=== PATIENT | female | born 1970 | race Caucasian/White ===

== ENCOUNTER → 2020-10-20 | Outpatient (CLI) | payer BC, MEDICARE ==
--- NOTE | 2020-10-24 00:44 | ECWPNPC ---
PATIENT NAME: BLANCA LEON : 1970 GENDER: FEMALE VISIT DATE: 10/20/2020 DISCHARGE DATE: 10/20/20 1320 VISIT LOCKED DATE TIME: PHYSICIAN: HENRIETTA ORTIZ PHYSICIAN PAGER NO: ACTIVE RESOURCE: HENRIETTA ORTIZ REASON FOR APPOINTMENT 1. LOW BACK HISTORY OF PRESENT ILLNESS DEPRESSION SCREENING: PHQ-2 (2015 EDITION) LITTLE INTEREST OR PLEASURE IN DOING THINGS?NOT AT ALL FEELING DOWN, DEPRESSED, OR HOPELESS?NOT AT ALL TOTAL SCORE0 GENERAL: HPI 50-YEAR-OLD FEMALE IN FOR INITIAL PAIN CONSULT REGARDING LOW BACK PAIN. PATIENT ADMITS THE PAIN HAS BEEN PRESENT FOR 4-5 YEARS AND DENIES HISTORY OF TRAUMA. PATIENT HAS HAD FACET BLOCKS IN THE PAST WITH GOOD RESULTS EVIDENCED BY DECREASED PAIN AND INCREASED FUNCTIONALITY TIMES ONE YEAR. SHE RATES HER PAIN CURRENTLY AT A 1 OUT OF 10 AND DESCRIBES IT ACHING, INTERMITTENT, TENDER, AND SORE.. - -. FALL RISK SCREENING: SCREENING : NO FALLS REPORTED IN THE LAST YEAR. PAIN SCREENING: PATIENT HAS A COMPLAINT OF ACUTE OR CHRONIC PAIN :YES LOCATION OF PAIN:LOW BACK INTENSITY OF PAIN (SCALE OF 1 TO 10):1 WHAT DOES YOUR PAIN FEEL LIKE:ACHING, INTERMITTENT, TENDER, SORE DURATION:INTERMITTENT PAIN IS INCREASED BY:ACTIVITIES, PROLONGED STANDING PAIN IS DECREASED BY:USE OF PAIN MEDICATIONS, OTHERS HEATING PAD NURSING NOTE: - -. PAIN CENTER INTAKE QUESTIONS: DO YOU HAVE A HISTORY OF MRSA? :NO DO YOU TAKE A BLOOD THINNERS? :NO DO YOU HAVE ANY BLEEDING DISORDERS? :NO ANY NEW NUMBNESS OR WEAKNESS IN YOUR LEGS OR ARMS? :NO ANY PACEMAKER,DEFIBRILLATOR, OR DORSAL COLUMN STIMULATOR? :NO DO YOU HAVE ANY RASHES OR OPEN SORES? :NO ARE YOU ALLERGIC TO IV DYE? :NO ARE YOU DIABETIC? :NO ANY NEW PROBLEMS WITH YOUR MEDICATIONS? :NO HAVE YOU RECEIVED A VACCINE IN THE PAST 30 DAYS? :NO DO YOU PLAN TO RECEIVE A VACCINE IN THE NEXT 21 DAYS? :NO DO YOU NEED ANY PRESCRIPTION? :NO DO YOU TAKE ANY IMMUNOSUPPRESSIVE MEDICATIONS? :NO IS THERE A CHANCE YOU COULD BE ? :NO ARE YOU BREAST FEEDING? :NO CURRENT MEDICATIONS TAKING LISINOPRIL 20 MG TABLET 1 TABLET ORALLY ONCE A DAY TAKING VALTREX 500 MG TABLET 1 TABLET ORALLY ONCE A DAY TAKING IBUPROFEN 600 MG TABLET 1 TABLET WITH FOOD OR MILK NEEDED ORALLY THREE TIMES A DAY TAKING XYZAL ALLERGY 24HR 5 MG TABLET 1 TABLET IN THE EVENING ORALLY ONCE A DAY TAKING CALCIUM + D 500-1000-40 MG-UNT-MCG TABLET CHEWABLE DIRECTED ORALLY TAKING BOTOX 200 UNIT SOLUTION RECONSTITUTED DIRECTED INJECTION TAKING OMEPRAZOLE 10 MG CAPSULE DELAYED RELEASE 1 CAPSULE 30 MINUTES BEFORE MORNING MEAL ORALLY ONCE A DAY TAKING VALTREX 1 GM TABLET 1 TABLET ORALLY ONCE A DAY TAKING MULTIVITAMIN - TABLET 1 TABLET ORALLY ONCE A DAY TAKING BIOTIN 10 MG TABLET 1 TABLET ORALLY ONCE A DAY TAKING LEXAPRO 20 MG TABLET 1 TABLET ORALLY ONCE A DAY MEDICATION LIST REVIEWED AND RECONCILED WITH THE PATIENT PAST MEDICAL HISTORY HIGH BLOOD PRESSURE MIGRAINES ARTHRITIS OF THE LEFT THUMB HEMORRHOLDS GALLBLADDER DISEASE NUMBNESS IN LEFT HAND VAGINAL INFECTIONS HTN ALLERGIES BACTRIM: HIVES - SIDE EFFECTS SURGICAL HISTORY TONSILLECTOMY 02/19/2018 4X /1991/1990 L WRIST 3X, L FEMUR 1984 HYSTERCTOMY 2012 HEMORRHOLDECTOMY 09/22/2014 NASAL SEPTOPLASTY 02/15/2015 LEFT CARPAL TUNNEL 03/13/2015 RIGHT CARPAL TUNNEL 04/10/2015 FAMILY HISTORY FATHER: ALIVE 73 YRS, CORONARY ARTERY DISEASE, HYPERTENSION MOTHER: ALIVE 71 YRS, CORONARY ARTERY DISEASE, HYPERTENSION, BREAST CANCER, TYPE 2 DIABETES, DIAGNOSED WITH DIABETES, HYPERTENSION SIBLINGS: ALIVE SON(S): ALIVE DAUGHTER(S): ALIVE 1 BROTHER(S) - HEALTHY. 2 SON(S) , 2 DAUGHTER(S) - HEALTHY. SOCIAL HISTORY GENERAL: TOBACCO USE ARE YOU A:NONSMOKER LATEX QUESTIONNAIRE LATEX ALLERGY : HAVE YOU EVER DEVELOPED ANY TYPE OF REACTION AFTER HANDLING LATEX PRODUCTS SUCH RUBBER GLOVES, CONDOMS, DIAPHRAGMS, BALLOONS, SOCKS, OR UNDERWEAR?NO LATEX ALLERGY : HAVE YOU EVER DEVELOPED ANY TYPE OF REACTION DURING OR AFTER DENTAL APPOINTMENT, VAGINAL/RECTAL EXAMINATION, SURGICAL PROCEDURE, OR ANY OTHER EXPOSURE?NO LATEX RISK : HAVE YOU EVER HAD ANY DIFFICULTY BREATHING OR HIVES AFTER EATING OR HANDLING ANY FRUITS, OR VEGETABLES; SUCH KIWI, BANANAS, STONE FRUITS, OR CHESTNUTSNO LATEX RISK : DO YOU HAVE A PREVIOUS PERSONAL HISTORY OF MORE THAN NINE SURGERIES, SPINA BIFIDA, OR REPEATED CATHERIZATIONS? NO LATEX RISK : ARE YOU FREQUENTLY EXPOSED TO LATEX PRODUCTS IN YOUR OCCUPATION?NO DATE ASKED : 10/20/2020 ALCOHOL USE: NO. RECREATIONAL DRUG USE DRUG USE?NO LANGUAGE LANGUAGES SPOKEN:TAJIK LEARNING BARRIERS / SPECIAL NEEDS VISION IMPAIRED?YES : READING LEARNING PREFERENCES?NO HOSPITALIZATION/MAJOR DIAGNOSTIC PROCEDURE CHILD 4X REVIEW OF SYSTEMS CONSTITUTIONAL: ANY RECENT FEVER NO . CHILLS NO . WEIGHT CHANGE OF UNKNOWN REASONS NO . MUSCULOSKELETAL: ANY UNUSUAL JOINT PAIN OR SWELLING NOT MENTIONED NO . SYSTEMIC LUPUS NO . ANY NEUROMUSCULAR DISORDER NOT MENTIONED NO . LYME DISEASE NO . GASTROENTEROLOGY: ANY NEW CHANGE IN BOWEL CONTROL? NO . HISTORY OF LIVER DISORDER NOT MENTIONED NO . HISTORY OF UNUSUAL ABDOMINAL PAIN OR CRAMPING NOT MENTIONED NO . NO CONSTIPATION. GENITOURINARY: ANY NEW CHANGE IN BLADDER CONTROL? NO . ANY RENAL/KIDNEY CONDITON NOT MENTIONED NO . NEUROLOGY: HISTORY OF TBI NOT MENTIONED NO . OTHER NEW NUMBNESS OR PAIN PATTERNS NOT MENTIONED NO . NEW ONSET DIZZINESS OR NEUROLOGICAL CHANGES NOT MENTIONED NO . HISTORY OF SEVERE HEADACHES NOT MENTIONED NO . HISTORY OF STROKE OR NEUROLOGICAL DISORDER NOT MENTIONED NO . CARDIOLOGY: HEART SURGERY NO . CONGESTIVE HEART FAILURE/FLUID OVERLOAD NOT MENTIONED NO . HISTORY OF CHEST PAIN,IRREGULAR HEART BEAT NOT MENTIONED NO . RESPIRATORY: SHORTNESS OF BREATH ON EXERTION, WHEEZES, UNUSUAL COUGH NOT MENTIONED NO . ENDOCRINOLOGY: ADRENAL GLAND OR THYROID DISORDERS NOT MENTIONED NO . UNUSUAL URINATION, DIZZINESS OR LETHARGY NOT MENTIONED NO . VITAL SIGNS WT 158 LBS, HT 5'1, BMI 30.85 INDEX, BP 124/83 MM HG, HR 63 /MIN, RR 18 /MIN, TEMP 97.3 F, OXYGEN SAT % 99%, SAFE IN ENV? (Y/N) YEST.LUIS ANGEL CARRILLO. EXAMINATION GENERAL EXAMINATION: GENERALNO ACUTE DISTRESS, WELL NOURISHED AND HYDRATED. PSYCHAPPROPRIATE MOOD AND AFFECT . LUNGS:CLEAR TO AUSCULTATION BILATERALLY, NO WHEEZES, RHONCHI, RALES. HEART:NO MURMURS, REGULAR RATE AND RHYTHM. BACK:POINT TENDER L4-L5, SURROUNDING SKIN SHOWS NO ERYTHEMA, ECCHYMOSIS, INCREASED WARMTH, AND/OR SKIN ERUPTIONS NOTED. PATIENT DOES ENDORSE INCREASED PAIN WITH FACET LOADING.. MUSCULOSKELETAL:EQUAL STRENGTH OF THE LOWER EXTREMITIES BILATERALLY. ASSESSMENTS LOW BACK PAIN - M54.5 (PRIMARY) TREATMENT LOW BACK PAIN [facility] MRI SPINE, L.S. WITHOUT [id number] NOTES: 50-YEAR-OLD FEMALE IN FOR INITIAL PAIN CONSULT REGARDING LOW BACK PAIN. GIVEN PRESENTING SYMPTOMS RECOMMEND OBTAINING AN UPDATED MRI FOR FURTHER EVALUATION AND FOLLOW-UP THEREAFTER. PATIENT HAS EXPRESSED UNDERSTANDING OF AND WAS IN AGREEMENT WITH TREATMENT PLAN. GIVEN TIME TO ASK QUESTIONS AND EXPRESS CONCERNS. PROCEDURE CODES FA211 ESTABILISHED PATIENT [facility] FACILITY CHARGE DISPOSITION & COMMUNICATION FOLLOW UP POST IMAGING (REASON: MRI WITHOUT CONTRAST ) ELECTRONICALLY SIGNED BY CELINA RANKIN ON 10/23/2020 AT 12:46 PM EDT DISCLAIMER : THIS IS A VISIT SUMMARY EXTRACTED FROM THE [employer] CHART. IT IS NOT A COPY OF THE [employer] PROGRESS NOTE. ABBY
== END ==
LOC: M PAIN 13:00
PROVIDERS: ATTEND Family Medicine
DX: M54.5 Low back pain (principal); G43.909 Migraine, unspecified, not intractable, without status migrainosus; Z88.1 Allergy status to other antibiotic agents; Z79.899 Other long term (current) drug therapy

== ENCOUNTER → 2020-11-08 | Outpatient (CLI) | payer BC, MEDICARE ==
--- NOTE | 2020-11-10 00:38 | ECWPNPC ---
PATIENT NAME: BLANCA LEON : 1970 GENDER: FEMALE VISIT DATE: 11/08/2020 DISCHARGE DATE: 11/08/20 1509 VISIT LOCKED DATE TIME: PHYSICIAN: HENRIETTA ORTIZ PHYSICIAN PAGER NO: ACTIVE RESOURCE: HENRIETTA ORTIZ REASON FOR APPOINTMENT 1. REVIEW MRI HISTORY OF PRESENT ILLNESS GENERAL: -50-YEAR-OLD FEMALE IN FOR CHRONIC PAIN FOLLOW-UP. PATIENT HAD MRI PERFORMED RECENTLY WHICH WILL BE REVIEWED WITH PATIENT TODAY. SHE RATES HER PAIN CURRENTLY AT A 0 OUT OF 10 BUT DOES ADMIT THAT IT GETS HIGH A 7 OUT OF 10. FALL RISK SCREENING: SCREENING : NO FALLS REPORTED IN THE LAST YEAR. PAIN SCREENING: PATIENT HAS A COMPLAINT OF ACUTE OR CHRONIC PAIN :YES LOCATION OF PAIN:LOW BACK O PAIN TODAY BUT GETS HIGH 7. NURSING NOTE: -. PAIN CENTER INTAKE QUESTIONS: DO YOU HAVE A HISTORY OF MRSA? :NO DO YOU TAKE A BLOOD THINNERS? :NO DO YOU HAVE ANY BLEEDING DISORDERS? :NO ANY NEW NUMBNESS OR WEAKNESS IN YOUR LEGS OR ARMS? :NO ANY PACEMAKER,DEFIBRILLATOR, OR DORSAL COLUMN STIMULATOR? :NO DO YOU HAVE ANY RASHES OR OPEN SORES? :NO ARE YOU ALLERGIC TO IV DYE? :NO ARE YOU DIABETIC? :NO ANY NEW PROBLEMS WITH YOUR MEDICATIONS? :NO HAVE YOU RECEIVED A VACCINE IN THE PAST 30 DAYS? :NO DO YOU PLAN TO RECEIVE A VACCINE IN THE NEXT 21 DAYS? :NO DO YOU NEED ANY PRESCRIPTION? :NO DO YOU TAKE ANY IMMUNOSUPPRESSIVE MEDICATIONS? :NO IS THERE A CHANCE YOU COULD BE ? :NO ARE YOU BREAST FEEDING? :NO CURRENT MEDICATIONS TAKING LISINOPRIL 20 MG TABLET 1 TABLET ORALLY ONCE A DAY TAKING VALTREX 500 MG TABLET 1 TABLET ORALLY ONCE A DAY TAKING IBUPROFEN 600 MG TABLET 1 TABLET WITH FOOD OR MILK NEEDED ORALLY THREE TIMES A DAY, NOTES: NEEDED TAKING XYZAL ALLERGY 24HR 5 MG TABLET 1 TABLET IN THE EVENING ORALLY ONCE A DAY, NOTES: NEEDED TAKING BOTOX 200 UNIT SOLUTION RECONSTITUTED DIRECTED INJECTION TAKING OMEPRAZOLE 40 MG CAPSULE DELAYED RELEASE 1 CAPSULE 30 MINUTES BEFORE MORNING MEAL ORALLY ONCE A DAY TAKING VALTREX 500 MG TABLET 1 TABLET ORALLY ONCE A DAY TAKING MULTIVITAMIN - TABLET 1 TABLET ORALLY ONCE A DAY TAKING BIOTIN 35211 MCG TABLET 1 TABLET ORALLY ONCE A DAY TAKING LEXAPRO 20 MG TABLET 1 TABLET ORALLY ONCE A DAY TAKING CALCIUM + D 500-1000-40 MG-UNT-MCG TABLET CHEWABLE 1 TABLET ORALLY ONCE DAILY TAKING SAXENDA 18 MG/3ML SOLUTION PEN-INJECTOR 1.2 FOR 5 DAYS, 1.8 FOR 4 DAYS, THEN TO 3ML SUBCUTANEOUS NOT-TAKING CALCIUM + D 500-1000-40 MG-UNT-MCG TABLET CHEWABLE DIRECTED ORALLY , NOTES: NOT TAKING MEDICATION LIST REVIEWED AND RECONCILED WITH THE PATIENT PAST MEDICAL HISTORY HIGH BLOOD PRESSURE MIGRAINES ARTHRITIS OF THE LEFT THUMB HEMORRHOLDS GALLBLADDER DISEASE NUMBNESS IN LEFT HAND VAGINAL INFECTIONS HTN OVARIAN MASS ALLERGIES BACTRIM: HIVES - SIDE EFFECTS SOCIAL HISTORY GENERAL: TOBACCO USE ARE YOU A:NONSMOKER LATEX QUESTIONNAIRE LATEX ALLERGY : HAVE YOU EVER DEVELOPED ANY TYPE OF REACTION AFTER HANDLING LATEX PRODUCTS SUCH RUBBER GLOVES, CONDOMS, DIAPHRAGMS, BALLOONS, SOCKS, OR UNDERWEAR?NO LATEX ALLERGY : HAVE YOU EVER DEVELOPED ANY TYPE OF REACTION DURING OR AFTER DENTAL APPOINTMENT, VAGINAL/RECTAL EXAMINATION, SURGICAL PROCEDURE, OR ANY OTHER EXPOSURE?NO LATEX RISK : HAVE YOU EVER HAD ANY DIFFICULTY BREATHING OR HIVES AFTER EATING OR HANDLING ANY FRUITS, OR VEGETABLES; SUCH KIWI, BANANAS, STONE FRUITS, OR CHESTNUTSNO LATEX RISK : DO YOU HAVE A PREVIOUS PERSONAL HISTORY OF MORE THAN NINE SURGERIES, SPINA BIFIDA, OR REPEATED CATHERIZATIONS? NO LATEX RISK : ARE YOU FREQUENTLY EXPOSED TO LATEX PRODUCTS IN YOUR OCCUPATION?NO DATE ASKED : 11/08/2020 ALCOHOL USE: NO. RECREATIONAL DRUG USE DRUG USE?NO LANGUAGE LANGUAGES SPOKEN:FAR[place]ESE EDUCATION LEVEL OF EDUCATION:NOT FINISHED COLLEGE LEARNING BARRIERS / SPECIAL NEEDS CHANGE FROM LAST VISIT?NO BARRIERS TO LEARNING?NO HEARING IMPAIRED?NO VISION IMPAIRED?YES : READING COGNITIVELY IMPAIRED?NO READINESS TO LEARN?YES LEARNING PREFERENCES?NO LEARNING CAPABILITIES PRESENT?YES EMOTIONAL BARRIERS?NO SPECIAL DEVICES?NO FIXING MACHINE OPERATOR NEEDED?NO REVIEW OF SYSTEMS CONSTITUTIONAL: ANY RECENT FEVER NO . CHILLS NO . WEIGHT CHANGE OF UNKNOWN REASONS NO . GASTROENTEROLOGY: NEW UNEXPLAINABLE CHANGES IN BOWEL CONTROL NO . CONSTIPATION NO . GENITOURINARY: ANY NEW CHANGE IN BLADDER CONTROL? NO . NEUROLOGY: NEW ONSET DIZZINESS OR NEUROLOGICAL CHANGES NOT MENTIONED NO . NEW NUMBNESS OR PAIN PATTERNS NOT MENTIONED AND PERTINENT TO TODAY'S VISIT NO . CARDIOLOGY: NEW CHEST PRESSURE NO . PATIENT DENIES NO . RESPIRATORY: UNEXPLAINABLE COUGH NO . NEW SHORTNESS OF BREATH NO . VITAL SIGNS WT 158 LBS, HT 5'1, BMI 30.85 INDEX, BP 126/88 MM HG, HR 69 /MIN, RR 18 /MIN, TEMP 99.1 F, OXYGEN SAT % 98%, SAFE IN ENV? (Y/N) YES, REVIEWED BY: PATY TORRES MA. EXAMINATION GENERAL EXAMINATION: GENERALNO ACUTE DISTRESS, WELL NOURISHED AND HYDRATED. PSYCHAPPROPRIATE MOOD AND AFFECT . LUNGS:CLEAR TO AUSCULTATION BILATERALLY, NO WHEEZES, RHONCHI, RALES. HEART:NO MURMURS, REGULAR RATE AND RHYTHM. ASSESSMENTS LOW BACK PAIN - M54.5 (PRIMARY) TREATMENT LOW BACK PAIN NOTES: 50-YEAR-OLD FEMALE IN FOR CHRONIC PAIN FOLLOW-UP. 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 PATIENT HAS BEEN SEEN BY GYNECOLOGY FOR THIS. PATIENT FURTHER STATES THAT THERE IS A POTENTIAL FOR SURGERY REGARDING REMOVAL OF THE CYST. GIVEN PRESENTING SYMPTOMS RECOMMEND FOLLOW-UP IN 2 MONTHS TO DETERMINE IF AFTER REMOVAL OF THE CYST THE PATIENT STILL HAS BACK PAIN. PATIENT HAS EXPRESSED UNDERSTANDING OF AND WAS IN AGREEMENT WITH TREATMENT PLAN. GIVEN TIME TO ASK QUESTIONS AND EXPRESS CONCERNS. PROCEDURE CODES FA211 ESTABILISHED PATIENT [facility] CHARGE DISPOSITION & COMMUNICATION FOLLOW UP 3 MONTHS (REASON: LOW BACK PAIN) ELECTRONICALLY SIGNED BY CELINA RANKIN ON 11/09/2020 AT 12:59 PM EDT DISCLAIMER : THIS IS A VISIT SUMMARY EXTRACTED FROM THE [employer] CHART. IT IS NOT A COPY OF THE [employer] PROGRESS NOTE. MTDScarlett
== END ==
LOC: M PAIN 14:30
PROVIDERS: ATTEND Family Medicine
DX: M54.5 Low back pain (principal); G89.29 Other chronic pain; G43.909 Migraine, unspecified, not intractable, without status migrainosus; Z88.1 Allergy status to other antibiotic agents; Z79.899 Other long term (current) drug therapy

== ENCOUNTER → 2021-12-18 | Outpatient (CLI) | payer BC, MEDICARE | LOC: M PAIN 09:45 | PROVIDERS: ATTEND Nurse Practitioner Family | DX: M79.10 Myalgia, unspecified site (principal); G89.29 Other chronic pain; G43.909 Migraine, unspecified, not intractable, without status migrainosus; Z88.1 Allergy status to other antibiotic agents; E66.01 Morbid (severe) obesity due to excess calories; Z68.41 Body mass index [BMI] 40.0-44.9, adult; Z79.899 Other long term (current) drug therapy ==

== ENCOUNTER → 2022-06-14 | Outpatient (CLI) | payer BC, MEDICARE ==
[~2022-06-14] MED LIST: BUPIVACAINE HCL 0.25% 10ML VIAL As Ordered ONE; BUPIVACAINE HCL 0.25% 30ML VIAL As Ordered ONE; TRIAMCINOLONE ACETONIDE SUSP 40MG/ML 1ML VIAL As Ordered ONE; diazePAM 5MG TABLET As Ordered ONE
== END ==
LOC: M PAIN 08:15
PROVIDERS: ATTEND Anesthesiology
DX: M79.10 Myalgia, unspecified site (principal); G89.29 Other chronic pain; I10 Essential (primary) hypertension; G43.909 Migraine, unspecified, not intractable, without status migrainosus; Z88.1 Allergy status to other antibiotic agents; E66.01 Morbid (severe) obesity due to excess calories; Z68.41 Body mass index [BMI] 40.0-44.9, adult; Z79.899 Other long term (current) drug therapy
CPT/HCPCS: 20552; J3301

== ENCOUNTER → 2022-06-26 | Outpatient (CLI) | payer BC, MEDICARE | LOC: M PAIN 15:00 | PROVIDERS: ATTEND Anesthesiology | DX: M54.50 Low back pain, unspecified (principal); G89.29 Other chronic pain; I10 Essential (primary) hypertension; G43.909 Migraine, unspecified, not intractable, without status migrainosus; Z88.1 Allergy status to other antibiotic agents; Z79.899 Other long term (current) drug therapy ==

== ENCOUNTER → 2023-02-07 | Outpatient (CLI) | payer BC, MEDICARE | LOC: M PAIN 09:00 | PROVIDERS: ATTEND Anesthesiology | DX: M79.10 Myalgia, unspecified site (principal); G89.29 Other chronic pain; I10 Essential (primary) hypertension; G43.909 Migraine, unspecified, not intractable, without status migrainosus; Z88.1 Allergy status to other antibiotic agents; E66.01 Morbid (severe) obesity due to excess calories; Z68.42 Body mass index [BMI] 45.0-49.9, adult; Z79.899 Other long term (current) drug therapy | CPT/HCPCS: 76000; G0463 ==

== ENCOUNTER → 2023-04-03 | Outpatient (CLI) | payer BC, MEDICARE ==
[~2023-04-03] MED LIST changes: -BUPIVACAINE HCL 0.25% 10ML VIAL As Ordered ONE; -BUPIVACAINE HCL 0.25% 30ML VIAL As Ordered ONE
== END ==
LOC: M PAIN 14:15
PROVIDERS: ATTEND Anesthesiology
DX: M79.18 Myalgia, other site (principal); G89.29 Other chronic pain; Z80.3 Family history of malignant neoplasm of breast; Z88.1 Allergy status to other antibiotic agents; E66.01 Morbid (severe) obesity due to excess calories; Z68.41 Body mass index [BMI] 40.0-44.9, adult; Z79.899 Other long term (current) drug therapy
CPT/HCPCS: 20552; J0665; J3301

== ENCOUNTER → 2023-06-10 | Outpatient (CLI) | payer BC, MEDICARE | LOC: M PAIN 16:30 | PROVIDERS: ATTEND Nurse Practitioner Family | DX: Z53.8 Procedure and treatment not carried out for other reasons (principal) ==

== ENCOUNTER → 2023-07-15 | Outpatient (CLI) | payer BC, MEDICARE | LOC: M PAIN 11:30 | PROVIDERS: ATTEND Nurse Practitioner Family | DX: M79.18 Myalgia, other site (principal); M25.551 Pain in right hip; M25.552 Pain in left hip; G43.909 Migraine, unspecified, not intractable, without status migrainosus; I10 Essential (primary) hypertension; Z79.899 Other long term (current) drug therapy; Z88.2 Allergy status to sulfonamides ==

== ENCOUNTER → 2024-01-09 | Outpatient (CLI) | payer BC, MEDICARE | LOC: M PAIN 15:30 | PROVIDERS: ATTEND Anesthesiology | DX: M25.551 Pain in right hip (principal); G43.909 Migraine, unspecified, not intractable, without status migrainosus; I10 Essential (primary) hypertension; Z79.02 Long term (current) use of antithrombotics/antiplatelets; Z79.1 Long term (current) use of non-steroidal anti-inflammatories (NSAID); Z88.1 Allergy status to other antibiotic agents ==

== ENCOUNTER → 2024-02-13 | Outpatient (CLI) | payer BC, MEDICARE | LOC: M PAIN 15:00 | PROVIDERS: ATTEND Anesthesiology | DX: M25.551 Pain in right hip (principal); G43.909 Migraine, unspecified, not intractable, without status migrainosus; I10 Essential (primary) hypertension; Z88.2 Allergy status to sulfonamides; Z79.899 Other long term (current) drug therapy ==